=== PATIENT | male | born 1950 | race Caucasian/White ===

== ENCOUNTER 2018-05-02 15:44 | Observation (INO) | payer MEDICARE ==
[~2018-05-02] VITALS: Ht 180.3 cm; Wt 119.1 kg
--- NOTE | ~2018-05-02 | HP ---
PATIENT: RUFINO RUSSELL MEDICAL RECORD: [id number] ACCOUNT: [id number] LOCATION:[address] : 54 ADMISSION DATE: 05/02/18 HISTORY AND PHYSICAL EXAMINATION ADMITTING DIAGNOSES: 1. Angina. 2. Coronary artery disease. 3. Previous percutaneous transluminal coronary angioplasty stent. 4. Hypertension. HISTORY OF PRESENT ILLNESS: This is a gentleman with a past history of coronary artery disease, who presents to [facility] with anginal symptomatology, found to have a mildly elevated troponin. He is no longer having chest discomfort. His chest discomfort was over the last 24 hours. He is on metoprolol 100 mg b.i.d. He was given aspirin and Plavix in [place]. PHYSICAL EXAMINATION: GENERAL APPEARANCE: Well-nourished, well-developed, appears stated age. Level of distress, comfortable. PSYCHIATRIC: Mental status, alert, normal affect. Orientation, oriented to time, place and person. EYES: Lids and conjunctiva, noninjected. No discharge, no pallor. ENT: Lips, teeth, gums, normal dentition. Oropharynx, no cyanosis, no pallor. NECK: Carotid arteries, bilateral normal upstroke, no bruits, no thrills. JUGULAR VEINS: No jugular venous pressure or distention. CERVICAL LYMPH NODES: Nontender, nonenlarged. THYROID: Not enlarged. Nontender. No nodules. LUNGS: Respiratory effort, unlabored. CHEST: Normal curvature. No thoracic deformity. No chest wall tenderness. Percussion, resonant. Auscultation, clear. No wheezes, no rales, no rhonchi. CARDIOVASCULAR: Precordial exam, nondisplaced. No heaves or pericardial thrills. Rate and rhythm, regular. Heart sounds, normal S1, normal S2. No S3, no gallop, no rub. Systolic murmur, not heard. Diastolic murmur, not heard. EXTREMITIES: No cyanosis, no edema. Peripheral pulses, full and equal in all extremities, except as noted. No bruits appreciated. ABDOMEN: Soft, nondistended. Normal aorta. No bruit. Nontender. No masses. Liver, nontender, no hepatomegaly. Spleen, nontender, no splenomegaly. MUSCULOSKELETAL: No joint tenderness. No joint swelling. No erythema. NEUROLOGICAL: Normal gait, normal strength, normal tone. SKIN: Warm and dry. OVERALL IMPRESSION: Anginal symptomatology, unstable, with a mildly elevated troponin. We will proceed with coronary angiography. Further care depends upon findings of the angiography. TRANSINT:[id number] Voice Confirmation ID: [id number] DOCUMENT ID: [id number] HISTORY AND PHYSICAL [id number] RUFINO RUSSELL JEFFREY MD at 1325 CC: [id number] DICTATION DATE: 05/03/18 1258 BRAILLE TYPIST: 05/03/18 1316 DIS IN 05/03/18 [facility] [address] [place] [address]
--- NOTE | ~2018-05-02 | DS ---
PATIENT:RUFINO SPANGLER :54 MEDICAL RECORD: [id number] DISCHARGE SUMMARY ADMISSION DATE: 05/02/18 DISCHARGE DATE: 05/03/18 DISCHARGE DIAGNOSES: 1. Angina. 2. Coronary artery disease. 3. Previous percutaneous transluminal coronary angioplasty stent. 4. Hypertension. HOSPITAL COURSE: Mr. Spangler presents with anginal symptomatology; however, found to have diffuse disease of his coronaries, but no flow limiting stenosis. He was discharged home with the addition of Imdur 30 mg b.i.d. to his medical regimen. He will follow up with [facility] in 1 month. TRANSINT:[id number] Voice Confirmation ID: [id number] DOCUMENT ID: [id number] MARILYN LEDESMA MD at 1325 CC: [id number] DICTATION DATE: 05/03/18 1258 RESOURCE DEVELOPMENT MANAGER: 05/03/18 1410 DIS IN 05/03/18 [id number] [place] [address]
--- NOTE | ~2018-05-02 | HEMODYNAMI ---
PATIENT:RUFINO RUSSELL MEDICAL RECORD: [id number] : 54 LOCATION:[facility] D.2114 ADMISSION DATE: 05/02/18 Generatedon:05/03/201812:59 Patient name: RUFINO RUSSELL Patient #: [id number] SSN: : 1950 Date of study: 05/03/2018 Page: Of Hemodynamic Procedure Report Patient Data Patient Demographics Procedure consent was obtained First Name: RUFINO Gender: Male Last Name: DREW : 1950 [facility] Initial: L Age: 67 year(s) Patient #: [id number] Race: Unknown Additional ID: [id number] Contact details [address]: [address] [place] [address] State: [place] City: [place] Zip code: [address] Past Medical History Allergies Allergen Reaction Date Comments Reported Other allergy 05/03/2018 CODEINE Admission Admission Data Admission Date: 05/02/2018 Admission Time: 15:44 Room #: D2114 Lab Results Lab Result Date: 05/03/2018 Lab Result Time: 0:00 Biochemistry Name Units Result Min Max BUN mg/dl 23 --(----)-* 7 18 Creatinine mg/dl 1 --(--*-)-- 0.6 1.3 CBC Name Units Result Min Max Hemoglobin g/dl 13.7 --(*---)-- 13.5 17.5 Procedure Procedure Types Cath Procedure Diagnostic Procedure LHC LHC w/Coronaries FFR/IVUS Intra-Coronary IVUS Initial Sedation Charges Moderate Sedation up to 15 minutes Procedure Description Procedure Date Procedure Date: 05/03/2018 Procedure Start Time: 12:35 Procedure End Time: 12:59 Procedure Staff Name Function Eder Oscar MD Performing Physician Katie Chao RT Monitor Linda Mckeon RT Scrub Joann Mtz RN Nurse Procedure Data Cath Procedure Fluoroscopy Diagnostic fluoroscopy Total fluoroscopy Time: 5.8 time: 5.8 min min Diagnostic fluoroscopy Total fluoroscopy dose: 845 dose: 845 mGy mGy Contrast Material Contrast Material Type Amount (ml) Isovue 300 62 Entry Location Entry Primary Successful Side Size Upsize Upsize Entry Closure Foy ccessful Closure Location (Fr) 1 (Fr) 2 (Fr) Remarks Device Remarks Radial Right 6 Fr Mechanical artery Short Compression Femoral Right 6 Fr Exoseal artery Short Estimated blood loss: 11 ml Diagnostic catheters Device Type Used For End Catheter Placement DIAGNOSTIC Spring 110cm 5 Procedure Fr catheter ([id number]) Procedure Complications No complications Procedure Medications Medication Administration Route Dosage Oxygen NC 2 l/min Lidocaine 2% added to field 20 Heparin Flush Bag added to field 2 bags (1000units/500ml NS) 0.9% NaCl I.V. 100 ml/hr Plavix P.O. 75 mg Versed I.V. 1 mg Fentanyl I.V. 50 mcg Radial Cocktail I.A. 1 syringe (Verapomil 2mg/Nitro 400mcg/Heparin 1500units) Versed I.V. 1 mg Fentanyl I.V. 50 mcg Versed I.V. 1 mg Fentanyl I.V. 50 mcg Heparin Bolus I.V. 5000 units Versed I.V. 1 mg Hemodynamics Rest HGB: 13.7 (g/dl) Heart Rate: 76 (bpm) Snapshots Pre Cath Intra NCS Post Cath Vital Signs Time Heart Resp SPO2 etCO2 NIBP (mmHg) Rhythm Pain Sedation Rate (ipm) (%) (mmHg) Status Level (bpm) 12:24:32 73 12 96 26.8 175/110(131) NSR 0 (11) 10(A) , No pain 12:28:36 78 12 96 34.3 182/109(144) NSR 0 (11) 10(A) , No pain 12:32:39 76 12 94 32.1 181/98(123) NSR 0 (11) 10(A) , No pain 12:36:43 75 19 96 20.9 163/101(131) NSR 0 (11) 10(A) , No pain 12:40:39 89 17 94 0 151/86(141) NSR 0 (11) 9(A) , No pain 12:44:40 87 15 93 0 151/83(131) NSR 0 (11) 9(A) , No pain 12:48:40 87 13 94 44.8 152/78(96) NSR 0 (11) 9(A) , No pain 12:52:44 85 18 94 46.3 159/74(108) NSR 0 (11) 9(A) , No pain 12:56:45 85 15 95 30.6 160/82(106) NSR 0 (11) 10(A) , No pain Medications Time Medication Route Dose Verified Delivered Reason Notes Effectiveness by by 12:21:01 Plavix P.O. 75 mg Eder Buffie for Celestina Mtz RN antiplatelet therapy 12:22:52 Oxygen NC 2 l/min Eder Buffie used for Celestina Mtz RN procedure 12:22:58 Lidocaine 2% added 20ml Eder Eder for local to vial Celestina Oscar MD anesthetic field 12:23:04 Heparin Flush added 2 bags Ederdelaney Gaines used for Bag to Celestina Oscar MD procedure (1000units/500ml field NS) 12:23:14 0.9% NaCl I.V. 100 Eder Buffie Per ml/hr Celestina Mtz RN physician 12:32:54 Versed I.V. 1 mg Eder Buffie for sedation Celestina Mtz RN 12:32:59 Fentanyl I.V. 50 mcg Eder Buffie for sedation Celestina Mtz RN 12:36:18 Radial Cocktail I.A. 1 Eder Buffie for (Verapomil syringe Celestina Mtz RN vasodilation 2mg/Nitro 400mcg/Heparin 1500units) 12:37:31 Versed I.V. 1 mg Eder Buffie for sedation Celestina Mtz RN 12:37:35 Fentanyl I.V. 50 mcg Eder Buffie for sedation Celestina Mtz RN 12:41:00 Versed I.V. 1 mg Eder Buffie for sedation Celestina Mtz RN 12:41:04 Fentanyl I.V. 50 mcg Eder Buffie for sedation Celestina Mtz RN 12:43:13 Heparin Bolus I.V. 5000 Eder Buffie Per verifie d units Celestina Mtz RN physician with dr. oscar 12:45:55 Versed I.V. 1 mg Eder Buffie for sedation Celestina Mtz RN Procedure Log Time Note 11:58:51 Time tracking: Regular hours (M-F 7:00 - 5:00) 11:58:56 Plan of Care:Hemodynamics will remain stable., Cardiac rhythm will remain stable., Comfort level will be maintained., Respiratory function will remain adequate., Patient/ family verbilizes understanding of procedure., Procedure tolerated without complication., Recovers from procedure without complications.. 11:58:58 Signed procedure consent form obtained from patient. 12:00:07 Patient allergic to Other allergyCODEINE 12:00:29 Lab Result : Creatinine 1 mg/dl 12:: Lab Result : BUN 23 mg/dl 12::29 Lab Result : Hemoglobin 13.7 g/dl 12:03:44 Joann Mtz RN sent for patient. Start room use. 12:: Patient received from Med II to CCL 2 Alert and oriented. Tansferred to table in Supine position. 12::03 Warm blankets applied, and carmel hugger turned on for patient comfort. 12::03 Correct patient and procedure confirmed by team. 12:13:04 ECG and BP/O2 sat monitors applied to patient. 12:21:01 Plavix 75 mg P.O. was administered by Joann Mtz RN; for antiplatelet therapy; 12::52 Oxygen 2 l/min NC was administered by Joann Mtz RN; used for procedure; 12::58 Lidocaine 2% 20ml vial added to field was administered by Eder Oscar MD; for local anesthetic; 12:23:04 Heparin Flush Bag (1000units/500ml NS) 2 bags added to field was administered by Eder Oscar MD; used for procedure; 12:23:14 0.9% NaCl 100 ml/hr I.V. was administered by Joann Mtz RN; Per physician; 12:23:38 Vital chart was started 12::55 Baseline sample Acquired. 12::58 Rhythm: sinus rhythm 12::59 Full Disclosure recording started 12:24:04 Pre-procedure instructions explained to patient. 12:24:04 Pre-op teaching completed and patient verbalized understanding. 12:24:07 Family in patients room. 12:24:08 Patient NPO since Midnight. 12:24:11 Is the patient allergic to Iodine/contrast media? No. 12:24:13 Is patient on blood thinner?Yes 12:24:14 300 PLAVIX GIVEN 7.19 12:24:14 Patient diabetic? Yes. 12:24:15 If diabetic: On Metformin? Yes 12:24:19 If on Metformin: Last Dose? 05/02/2018 12:24:22 Previous problem with sedation/anesthesia? No ? 12:24:23 Snore? Yes 12:24:25 Sleep apnea? No 12:24:26 Deviated septum? No 12:24:26 Opens mouth fully? Yes 12:24:27 Sticks out tongue? Yes 12:24:29 Airway obstruction? No ? 12:24:31 Dentures? No ? 12:24:34 Modified Hal's test Ulnar < 7 seconds 12:24:38 Patient pain scale 4/10 ?. 12:25:37 IV patent on arrival in left forearm with 0.9% NaCl at [facility]. 12:25:42 Lab results completed and on chart. 12:25:44 Right Radial & Right Groin area was prepped with chlora-prep and draped in sterile fashion 12:25:45 Alarms reviewed by R. N. 12:25:46 Sharps counted by scrub and verified by R.N. 12:25:48 Use device set Radial Dx or PCI 12:25:50 ACIST Syringe (49608) opened to sterile field. 12:25:51 Bag Decanter (2002S) opened to sterile field. 12:25:51 ACIST Hand Control (53041) opened to sterile field. 12:25:52 ACIST Manifold (44397) opened to sterile field. 12:25:52 Tegaderm 4 x 4 (1626W) opened to sterile field. 12:25:54 Medline Cath Pack ([id number]) opened to sterile field. 12:25:54 DIAGNOSTIC WIRE .035 260cm J wire (055756) opened to sterile field. 12:25:55 SHEATH 6Fr Prelude Radial ([id number]) opened to sterile field. 12:31:27 Zero performed for pressure channel P1 12:31:54 --------ALL STOP TIME OUT------ 12:31:54 Final Timeout: patient, procedure, and site verified with staff and physician. All members of the team are in agreement. 12:31:57 Right Radial & Right Groin site verified by team. 12:32:00 Physical assessment completed. ASA score P 2 - A patient with mild systemic disease as per Eder Oscar MD. 12:32:02 Sedation plan: IV Moderate Sedation Medication:Versed, Fentanyl 12:32:54 Versed 1 mg I.V. was administered by Joann Mtz RN; for sedation; 12:32:59 Fentanyl 50 mcg I.V. was administered by Joann Mtz RN; for sedation; 12:34:49 Procedure started. 12:35:08 Local anesthetic to right radial artery with Lidocaine 2% by Eder Oscar MD.INITIAL ACCESS ONLY 12:35:43 A 6 Fr Short sheath was inserted into the Right Radial artery 12:36:18 Radial Cocktail (Verapomil 2mg/Nitro 400mcg/Heparin 1500units) 1 syringe I.A. was administered by Joann Mtz RN; for vasodilation; 12:36:48 A DIAGNOSTIC Spring 110cm 5 Fr catheter (209657) was advanced over the wire and used for Procedure. 12:37:31 Versed 1 mg I.V. was administered by Joann Mtz RN; for sedation; 12:37:35 Fentanyl 50 mcg I.V. was administered by Joann Mtz RN; for sedation; 12:37:43 LV gram done using LAYTON 12:38:09 Injector settings: Ml/sec: 5, Volume: 15, 12:38:16 EF : 55 % 12:38:47 RCA angiography performed. 12:38:50 Catheter exchanged over wire. 12:39:36 GUIDE 6FR XBLAD 3.5 catheter ([id number]) opened to sterile field. 12:39:44 6 Fr XBLAD 3.5 guide catheter was inserted over the wire 12:41:00 Versed 1 mg I.V. was administered by Joann Mtz RN; for sedation; 12:41:04 Fentanyl 50 mcg I.V. was administered by Joann Mtz RN; for sedation; 12:41:11 UNABLE TO ENGAGE LCA 12:41:24 Catheter exchanged over wire. 12:42:12 GUIDE 5FR EBU 3.75 catheter ([id number]) opened to sterile field. 12:42:26 INFLATOR Merit BasixCompak (RY5684) opened to sterile field. 12:42:27 CHOICE PT Extra Support 182cm wire ([id number]) opened to sterile field. 12:42:43 5 Fr EBU 3.75 guide catheter was inserted over the wire 12:43:13 Heparin Bolus 5000 units I.V. was administered by Joann Mtz RN; Per physician; verified with dr. oscar 12:43:58 UNABLE TO ENGAGE LCA 12:44:12 NO RADIAL.. WILL PROCEED GROIN 12:44:17 SHEATH 6FR [place] (LMY220) opened to sterile field. 12:44:30 A 6 Fr Short sheath was inserted into the Right Femoral artery 12:45:34 6 Fr XBLAD 3.5 guide catheter was inserted over the wire 12:45:55 Versed 1 mg I.V. was administered by Joann Mtz RN; for sedation; 12:47:27 LCA angiography performed. 12:47:30 Catheter exchanged over wire. 12:48:10 GUIDE 6FR AR 2.0 catheter (KK4HS43) opened to sterile field. 12:48:18 [place] IVUS Catheter (55258V) opened to sterile field. 12:48:33 6 Fr AR2 guide catheter was inserted over the wire 12:49:19 CHOICE ES 182 wire advanced. 12:49:32 Wire advanced across lesion. 12:50:57 IVUS catheter advanced over wire. 12:50:59 IVUS pass to RCA lesion performed. 12:51:00 IVUS catheter removed over wire. 12:51:11 Wire removed. 12:51:12 Guide catheter removed. 12:51:21 EXOSEAL 6Fr (EX600) opened to sterile field. 12:51:28 TR BAND Standard ([id number]) opened to sterile field. 12:51:59 Sheath removed intact; hemostasis achieved with Exoseal to the Right Femoral artery. 12:52:02 Procedure ended.(Physican Out) 12:52:24 Sheath removed intact; hemostasis achieved with Mechanical Compression to the Right Radial artery. 12:52:30 Fluoroscopy time 05.80 minutes. 12:52:34 Fluoroscopy dose: 845 mGy 12:52:34 Flurop Dose total: 845 12:52:37 Contrast amount:Isovue 300 62ml. 12:52:39 Sharps counted by scrub and verified by R.N. 12:52:42 TR band inflated with 10cc of air. 12:52:50 Post-op/insertion site Right Femoral artery dressed using a 4 x 4 and Tegaderm. 12:52:54 Post right femoral artery:stable, soft, clean and dry 12:52:59 Post-procedure physical assessment completed. ASA score P 2 - A patient with mild systemic disease as per Eder Oscar MD. 12:53:01 Post procedure rhythm: sinus rhythm 12:53:04 Estimated blood loss: 11 ml 12:53:14 Post procedure instruction explained to patient.Patient verbalizes understanding. 12:53:14 Patient needs reinforcement of post procedure teaching. 12:53:27 Procedure type changed to Cath procedure, Diagnostic procedure, LHC, LHC w/Coronaries, FFR/IVUS, Intra-Coronary IVUS Initial, Sedation Charges, Moderate Sedation up to 15 minutes 12:54:11 Procedure and supply charges have been captured, reviewed, submitted and are correct. 12:54:13 Procedure Complication : No complications 12:59:01 Vital chart was stopped 12:59:02 See physician's report for complete and final results. 12:59:04 Report given to PCU. 12:59:07 Patient transfered to PCU with Bed. 12:59:09 Procedure ended. 12:59:09 Full Disclosure recording stopped 12:59:11 End room use (Document Last) Device Usage Item Name Manufacture Quantity Catalog Number Hospital Part Current M inimal Lot# / Charge Number Stock Stock Serial# Code ACIST Syringe Acist 1 82914 953907 007555 251987 2 0 (47931) Medical [employer] Inc Bag Decanter Microtek 1 2001S 336247 92913 243450 5 (2001S) Medical Inc. ACIST Hand Acist 1 20988 439857 997918 219342 5 Control (77302) Medical Systems Inc ACIST Manifold Acist 1 11058 853237 951328 831047 5 (59647) Medical Systems Inc Tegaderm 4 x 4 3M 1 1626W 628735 548413 763290 5 (1626W) Medline Cath Cardinal 1 [id number] 666327 15548 938617 5 [facility] ([id number]) DIAGNOSTIC WIRE [place] 1 442022 822037 321331 457022 3 0 .035 260cm J wire (457251) SHEATH 6Fr Merit 1 [id number] 899385 587512 688711 5 Prelude Radial Medical ([id number]) DIAGNOSTIC Terumo 1 83-2904 438095 031148 204282 5 Spring 110cm 5 Fr catheter (867491) GUIDE 6FR XBLAD Cardinal 1 [id number] 375119 555500 304454 1 0 3.5 catheter Health ([id number]) GUIDE 5FR EBU Medtronic 1 [id number] 635930 028553 6882823 1 3.75 catheter ([id number]) INFLATOR Merit Merit 1 RJ9081 486796 431706 134775 1 5 [facility] (MW9807) CHOICE PT Extra [place] 1 [id number] 362222 548350 784278 5 Support 182cm Scientific wire ([id number]) SHEATH 6FR Terumo 1 SAI613 956951 766531 604141 4 0 [place] (CIH057) GUIDE 6FR AR Medtronic 1 [id number] 468526 33209 785376 1 2.0 catheter (ZS8CT20) [place] 1 31428Q 853272 941192 989779 8 [place] IVUS Catheter (34739D) EXOSEAL 6Fr Cardinal 1 EX600 396269 759907 263288 1 0 (EX600) Health TR BAND Terumo 1 [id number] 323806 926725 770556 4 0 Standard ([id number]) Signature Audit [place] Stage Time Signature Unsigned Intra-Procedure 05/03/2018 Katie Chao 12:59:41 PM RT(R) Signatures Monitor : Katie Chao Signature : RT Date : Time : [address] [place] [address]
--- NOTE | ~2018-05-02 | OP ---
PATIENT NAME: RUFINO RUSSELL MEDICAL RECORD: [id number] :54 LOCATION:D.M2 D.2114 ADMISSION DATE:05/02/18 SURGEON: MARILYN LEDESMA MD DATE OF OPERATION: 05/03/2018 PROCEDURES: 1. Left heart catheterization. 2. Selective coronary angiography. 3. Left ventriculogram. 4. Intravascular ultrasound. INDICATION: Angina and coronary artery disease. PROCEDURE IN DETAIL: After informed consent was obtained and after a detailed description of the risks, benefits as well as alternative therapies, the patient elected to proceed with angiogram and heart catheterization. The right femoral area was prepped and draped in normal sterile fashion. Right femoral artery was cannulated via modified Seldinger technique with placement of 6-Armenian sheath. All catheters exchanged through this sheath. FINDINGS: Left ventriculogram was performed in a standard 30-degree LAYTON view, reveals preserved cardiac wall motion, ejection fraction 55%. SELECTIVE CORONARY ANGIOGRAPHY: 1. Left main is with no significant angiographic disease. 2. Left anterior descending has moderate irregularities with no flow-limiting stenosis. 3. The left circumflex is large, dominant, diffuse disease, especially in the distal vessel, but no flow-limiting stenosis. 4. Right coronary is moderate sized, has diffuse disease. Intravascular ultrasound reveals there is nothing greater than 40% stenosis. OVERALL IMPRESSION: Diffuse coronary artery disease is present. No flow-limiting stenosis. Continue medical management of the coronary artery disease and cardiac risk factors. TRANSINT:[id number] Voice Confirmation ID: [id number] DOCUMENT ID: [id number] MARILYN LEDESMA MD at 1325 CC: [id number] DICTATION DATE: 05/03/18 1300 CROSSING TENDER: 05/03/18 1400 DIS IN 05/03/18 [address] [place] [address]
[~2018-05-02 15:44] MED LIST: ASPIRIN325 MG PO; FLEXERIL10 MG PO; FLOMAX0.4 MG PO; GLUCOPHAGE500 MG PO; LASIX40 MG PO; LORCET 10/650 T1 TAB PO; METOPROLOL TAR100 MG PO; MICRO-K10 MEQ PO; NITROSTAT0.4 MG SL; PEPCID20 MG PO; ZOCOR20 MG PO; ZYLOPRIM300 MG PO
[2018-05-02 16:05] VITALS: BP 171/89; Ht 180.3 cm; Wt 119.1 kg
[2018-05-02 17:09] LABS: HEMATOCRIT 39.4 % (42.0-54.0); HEMOGLOBIN 13.7 g/dL (13.5-17.5); MCHC 34.8 g/dL (31.0-37.0); MCV 86.4 fL (80.0-100.0); MEAN PLATELET VOLUME 10.6 fL (7.4-10.4); NEUTROPHILS 53.2 % (40-80); RBC 4.56 10x6/uL (4.20-6.10); RDW 13.2 % (11.5-14.5); WBC 7.5 10x3/uL (4.8-10.8)
[2018-05-02 17:20] LABS: PLATELET COUNT 161 10x3/uL (130-400)
[2018-05-02 17:27] LABS: CALC OSMOLALITY 291 mosm/kg (275-300); CALCIUM 8.2 mg/dL (8.5-10.1); CARBON DIOXIDE 31.7 mmol/L (21.0-32.0); CHLORIDE - SERUM 106 mmol/L (98-107); GLUCOSE 112 mg/dL (74-106); POTASSIUM - SERUM 3.7 mmol/L (3.5-5.1); SODIUM 144 mmol/L (136-145); UREA NITROGEN 23 mg/dL (7-18); eGFR NON AFRICAN AMERICAN 80 mL/min (90-120)
[2018-05-02 21:35] VITALS: BP 150/79
[2018-05-03 01:10] VITALS: BP 171/90
[2018-05-03 05:05] VITALS: BP 173/96
[2018-05-03 08:16] VITALS: BP 163/92
[2018-05-03 11:14] VITALS: BP 169/83
[2018-05-03 15:29] VITALS: BP 133/70
[2018-05-03] MEDS ORDERED: PEPCID40 MG PO (18:43)
== END 2018-05-03 19:00 | disposition home or self-care (01) ==
LOC: OBSVTIME 15:44 → D.M2 15:44
PROVIDERS: Internal Medicine Interventional Cardiology
DX: I25.119 Atherosclerotic heart disease of native coronary artery with unspecified angina pectoris (principal); Z95.5 Presence of coronary angioplasty implant and graft; I10 Essential (primary) hypertension